=== PATIENT | female | born 1980 | race Caucasian/White ===

== ENCOUNTER 2018-09-05 05:13 | Emergency (ER) | payer SELFPAY ==
[2018-09-05] MEDS ORDERED: Lidocaine 1% w/Epinephrine 1:100K 20 ML VIAL ONE (05:44)
[2018-09-05] MEDS ORDERED: Triple Antibiotic Oint 1 GM Packet ONE (05:59)
--- NOTE | 2018-09-05 08:44 | RAD ---
THREE VIEWS OF THE RIGHT FOOT: DATE: 09/05/2018. COMPARISON: None. HISTORY: Injury, laceration, pain. FINDINGS: There is no radiopaque foreign body, subcutaneous gas, fracture, or evidence of dislocation. Skin irregularity along the plantar aspect of the foot may e associated with laceration. IMPRESSION: No acute fracture or dislocation. POS: [facility]
== END 2018-09-05 06:12 | disposition home or self-care (01) ==
LOC: ERS 05:13
DX: S91.311A Laceration without foreign body, right foot, initial encounter (principal); G43.909 Migraine, unspecified, not intractable, without status migrainosus; F31.9 Bipolar disorder, unspecified; Z79.899 Other long term (current) drug therapy; W25.XXXA Contact with sharp glass, initial encounter; Y92.009 Unspecified place in unspecified non-institutional (private) residence as the place of occurrence of the external cause
CPT/HCPCS: 12002; J2001

== ENCOUNTER 2018-11-27 20:44 | Emergency (ER) | payer SELFPAY | END 2018-11-27 21:13 | disposition left against medical advice (07) | LOC: ERS 20:44 | DX: Z53.21 Procedure and treatment not carried out due to patient leaving prior to being seen by health care provider (principal) ==

== ENCOUNTER 2019-02-21 14:32 | Inpatient (IN) | payer SELFPAY ==
[2019-02-21] MEDS ORDERED: Lidocaine 1% PF 5 ML VIAL ONE (16:29)
[2019-02-21] MEDS ORDERED: ePHEDrine 50 MG/ML VIAL ONE (16:29)
[2019-02-21] MEDS ORDERED: Ketorolac Tromethamine 30 MG/ML VIAL ONE ×2 (16:29→21:33)
[2019-02-21] MEDS ORDERED: Dexamethasone 20 MG/5 ML VIAL ONE (16:29)
[2019-02-21] MEDS ORDERED: Ondansetron PF 4 MG/2 ML Vial ONE (16:29)
[2019-02-21] MEDS ORDERED: PROPOFOL 200 MG/20 ML VIAL ONE (16:29)
[2019-02-21 16:31] LABS: #Basophils 0.2 thou/uL (0.0-0.2); #Eosinphils 0.2 thou/uL (0.0-0.7); #Lymphocytes 3.4 thou/uL (1.20-3.40); #Neutrophils 7.5 thou/uL (1.40-6.50); %Basophils 1.4 % (0.0-1.0); %Eosinophils 1.4 % (0.0-10.0); %Monocytes 8.1 % (0.0-10.0); %Neutrophils 61.1 % (42.0-75.0); Hemoglobin 8.5 g/dL (12.0-16.0); Mean Corpuscular HGB CONC 31.2 g/dL (32.0-36.0); Mean Corpuscular Hemoglobin 25.4 pg (27.0-31.0); Mean Corpuscular Volume 81.5 fL (78.0-98.0); Mean Platelet Volume 8.9 fL (7.4-10.4); Platelet Count 212 thou/uL (130-400); RBC Distribution Width 17.5 % (11.5-14.5); Red Blood Cell (RBC) Count 3.34 mill/uL (4.20-5.40); White Blood Cell (WBC) Count 12.2 thou/uL (4.8-10.8)
[2019-02-21] MEDS ORDERED: Morphine 2 MG/ML SYRINGE SLOW IVP PRN (16:39)
[2019-02-21] MEDS ORDERED: Morphine 2 MG/ML SYRINGE SLOW IVP SCH (16:45)
[2019-02-21] MEDS ORDERED: Ketorolac Tromethamine 30 MG/ML VIAL IM SCH (16:45)
[2019-02-21] MEDS ORDERED: Ketorolac Tromethamine 30 MG/ML VIAL IVP SCH (16:45)
[2019-02-21] MEDS ORDERED: Sodium Chloride 0.9% 10 ML ONE ×2 (17:06→20:11)
[2019-02-21 17:07] LABS: Bilirubin Negative (Negative); Blood, Urine Negative (Negative); Clarity CLOUDY (Clear); Glucose, Urine (Dipstick) Negative (Negative); Leukocyte Negative (Negative); Nitrite Negative (Negative); Protein, Urine (Dipstick) Trace mg/dL (Neg-Trace); Specific Gravity, Urine 1.021 (1.002-1.036); pH, Urine 7.5 (5.0-9.0)
[2019-02-21 17:09] LABS: Bacteria/HPF None Seen HPF (None Seen); Hyaline Casts/LPF 4-6 HYALINE CAST LPF (0-3 Hyaline); Pathc Cast-AUWi Flag 1.22 (0-2.49); RBC/HPF 0-3 HPF (0-3); Squamous Epithelial 0-3 HPF (0-3)
[2019-02-21 17:10] LABS: Pregnancy Test - Urine (BHCG) Negative (Negative); Pregu Control Background? CLEAR/WHITE (CLR/WHITE); Pregu Control Bar Appear? YES (CONTROL BAR); Specific Gravity 1.021 (1.002-1.036)
[2019-02-21 17:14] VITALS: BMI 41.5
[2019-02-21] MEDS ORDERED: Bupivacaine PF 0.5% 30 ML VIAL ONE (20:11)
[2019-02-21] MEDS ORDERED: Thrombin 5000 UNITS/5 ML VIAL ONE (20:11)
[2019-02-21] MEDS ORDERED: Bacitracin Zinc Ointment 30 gm TUBE ONE (20:11)
[2019-02-21] MEDS ORDERED: Sodium Chloride 0.9% 0 ML ONE (20:12)
[2019-02-21] MEDS ORDERED: Fentanyl 100 MCG/2 ML VIAL ONE ×2 (20:15→21:48)
[2019-02-21] MEDS ORDERED: Midazolam HCl 2 mg/2 ml Vial ONE (20:15)
[2019-02-21] MEDS ORDERED: Ondansetron PF 4 MG/2 ML Vial IV PRN (20:24)
[2019-02-21] MEDS ORDERED: Bisacodyl 10 MG SUPP PR PRN (20:24)
[2019-02-21] MEDS ORDERED: Milk Of Magnesia 30 ML UDCUP PO PRN (20:24)
[2019-02-21] MEDS ORDERED: Acetaminophen 325 MG TAB PO PRN (20:24)
[2019-02-21] MEDS ORDERED: Communication Order-Pharmacy FS SCH (20:30)
[2019-02-21] MEDS ORDERED: Sodium Chloride 0.9% 50 ML ONE (21:30)
[2019-02-21] MEDS ORDERED: HYDROmorphone 2 MG/ML VIAL SLOW IVP PRN (21:32)
[2019-02-21] MEDS ORDERED: Promethazine HCl 25 MG/ML VIAL IM PRN (21:32)
[2019-02-21] MEDS ORDERED: Promethazine HCl 25 MG/ML VIAL SLOW IVP PRN (21:32)
[2019-02-21] MEDS ORDERED: PACU-Morphine 4MG/ML VIAL SLOW IVP PRN (21:32)
[2019-02-21] MEDS ORDERED: Ondansetron HCl/PF 4 MG/2 ML Vial IVP PRN (21:32)
[2019-02-21] MEDS ORDERED: Metoprolol Tartrate 5 MG/5 ML VIAL ONE (22:10)
[2019-02-21] MEDS: Aspirin 81 mg Enteric Coated Tablet PO SCH (23:37)
[2019-02-22] MEDS: Sodium Chloride 0.9% 100 ML IV SCH ×2 (00:42→00:43)
[2019-02-22] MEDS: HYDROcodone/Acetaminophen 5/325 mg Tablet PO PRN ×5 (01:12→22:01)
[2019-02-22] MEDS: Ketorolac Tromethamine 30 MG/ML VIAL IVP PRN ×4 (03:17→20:48)
[2019-02-22] MEDS: Vancomycin HCl 1.5 GM in Sodium Chloride 0.9% 250 ML 300 ML IVPB SCH ×2 (03:20→14:46)
[2019-02-22] MEDS: Sodium Chloride 0.9% 1,000 ML IV SCH ×2 (03:54→14:01)
[2019-02-22] MEDS: Ketorolac Tromethamine 30 MG/ML VIAL IVP SCH ×4 (03:55→20:55)
[2019-02-22 06:09] LABS: #Lymphocytes 0.7 thou/uL (1.20-3.40); #Monocytes 0.2 thou/uL (0.11-0.59); #Neutrophils 6.8 thou/uL (1.40-6.50); %Basophils 0.4 % (0.0-1.0); %Eosinophils 0.1 % (0.0-10.0); %Lymphocytes 8.6 % (21.0-51.0); %Monocytes 2.7 % (0.0-10.0); %Neutrophils 88.2 % (42.0-75.0); Hemoglobin 8.4 g/dL (12.0-16.0); Mean Corpuscular HGB CONC 31.1 g/dL (32.0-36.0); Mean Corpuscular Hemoglobin 25.1 pg (27.0-31.0); Mean Corpuscular Volume 80.9 fL (78.0-98.0); Mean Platelet Volume 9.1 fL (7.4-10.4); Platelet Count 247 thou/uL (130-400); RBC Distribution Width 17.3 % (11.5-14.5); Red Blood Cell (RBC) Count 3.33 mill/uL (4.20-5.40); White Blood Cell (WBC) Count 7.7 thou/uL (4.8-10.8)
[2019-02-22] MEDS: Aspirin 81 mg Enteric Coated Tablet PO SCH ×2 (08:41→20:49)
[2019-02-22] MEDS: Morphine 2 MG/ML SYRINGE SLOW IVP PRN ×4 (08:43→20:49)
[2019-02-22] MEDS ORDERED: TETANUS AND DIPHTHERIA TOX/PF 0.5 ML DISP.SYRIN IM SCH (09:00)
[2019-02-22] MEDS: Meperidine HCl/PF 25 MG/ML VIAL IM PRN ×2 (09:52→17:46)
[2019-02-22] MEDS: traMADol HCl 50 MG TAB PO PRN ×2 (14:00→19:32)
[2019-02-23] MEDS: Sodium Chloride 0.9% 1,000 ML IV SCH ×2 (00:22→08:58)
[2019-02-23] MEDS: traMADol HCl 50 MG TAB PO PRN ×2 (00:44→07:57)
[2019-02-23] MEDS: Morphine 2 MG/ML SYRINGE SLOW IVP PRN (00:47)
[2019-02-23 02:43] LABS: Vancomycin, Trough 10.9 ug/mL
[2019-02-23] MEDS: Vancomycin HCl 1.5 GM in Sodium Chloride 0.9% 250 ML 300 ML IVPB SCH (02:59)
[2019-02-23] MEDS: Meperidine HCl/PF 25 MG/ML VIAL IM PRN (04:30)
[2019-02-23] MEDS: HYDROcodone/Acetaminophen 5/325 mg Tablet PO PRN ×2 (05:29→10:11)
[2019-02-23] MEDS: Ketorolac Tromethamine 30 MG/ML VIAL IVP PRN (07:57)
[2019-02-23] MEDS: Aspirin 81 mg Enteric Coated Tablet PO SCH (07:57)
[2019-02-23 08:13] VITALS: BP 149/81; TEMP 98.3
--- NOTE | 2019-02-24 12:16 | OP ---
DATE OF PROCEDURE: 02/21/2019 PREOPERATIVE DIAGNOSIS: Right thumb distal phalanx abscess with possible sheath abscess. POSTOPERATIVE DIAGNOSIS: Right thumb abscess, almost 2 mL of gross purulence emanated from the tendon sheath beginning at the insertion and going under the sheath with mucopurulent drainage between the A1 and A2 pulleys/oblique holly and proximal A1 holly. PROCEDURE PERFORMED: 1. Incision and drainage of abscess. 2. Tendon sheath irrigation with indwelling Pollack catheter. COMPLICATIONS: None. TOURNIQUET TIME: 14 minutes. SPECIMEN: Gross culture of the abscess. 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 Five days ago this happened, but over the last 2 days, she got progressive swelling, loss of motion, erythema, throbbing pain, and tightness which was intolerable. She presented with a white count of 13,000 and exam consistent with flexor sheath involvement. She had a puncture wound just over the distal phalanx, interphalangeal joint, palmar flexion crease of the thumb. DESCRIPTION OF PROCEDURE: After successful general endotracheal anesthesia by MAC anesthesia, the limb was prepped and draped. She then got a 50 mL of 0.5% Marcaine block completely around the thumb, we exsanguinated the limb, inflated tourniquet to 250 mmHg pressure. We then made an incision centered over the puncture wound, carried in a Paty fashion obliquely of 1 cm to get between the level of the A2 and oblique pulleys and then we made an incision just proximal to the A1 holly also in a Paty fashion manner. We found and protected all the neurovascular bundles, but in the distal incision, there was gross thick yellow mucopurulent abscess and in the portion of this incision as well as the most proximal incision. There was some mucopurulent escaping from the sheath, so we irrigated the abscess cavity with 500 mL of normal saline. Then, we irrigated the tendon sheath with the Pollack (indwelling catheter) to 250 mL initially exiting proximal to the infection area in the palm. There was no mucopurulence seen after this anywhere, finished irrigation for use of 1 L total and then a bulky dressing applied with the Pollack catheter indwelling for later irrigation as indicated. Job ID: [id number]
--- NOTE | 2019-02-24 12:47 | OP ---
DATE OF PROCEDURE: 02/21/2019 PREOPERATIVE DIAGNOSES: 1. Abscess, thumb, distal phalanx, palmar surface. 2. Abscess, tendon sheath, right thumb. POSTOPERATIVE DIAGNOSES: 1. Abscess, thumb, distal phalanx, palmar surface. 2. Abscess, tendon sheath, right thumb. FINDINGS: Approximately a 1 cm long by 8 mm wide fully developed and almost 8 mm thick abscess cavity right over the flexor tendon with sheath spread from the level of this A3 holly to at least chcf between the A1 and an oblique holly. COMPLICATIONS: None. PROCEDURES PERFORMED: 1. Incision and drainage of abscess, palmar thumb. 2. Via separate incisions, flexor tendon sheath irrigation using Pollack indwelling irrigation catheter. SPECIMENS REMOVED: The entire abscess cavity gross purulence. 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 Over the last two days, she had intense swelling and had Kanavel signs x3 indicative of a sheath abscess. She had elevated white count, thus urgent drainage was indicated. DESCRIPTION OF PROCEDURE: After successful general LMA technique, the limb was prepped and draped. Time-out was done. Tourniquet was inflated with for 14 minutes. We then injected her with 12 mL of 0.5% Marcaine in the metacarpophalangeal joint level and 2 mL over the incision area of the A1 holly. The patient then had the site of what appeared to be a pustule, undergo a 1 cm incision and underneath was almost a 1 cm long abscess cavity with gross, thick, well-circumscribed yellow pus. We removed this, and noticed the pus was spreading down the tendon sheath, and then extended the incision 5 mm made it into the sheath just proximal to the distal holly. We then turned our attention to the A1 holly region, made a 1 cm Paty type incision proximal to this, identified the nerve branches and protected them and then proximal to the A1 holly sheath area, placed a Pollack catheter with irrigation. We irrigated the open wound at the distal palmar thumb with 500 mL normal saline with bulb syringes and then we irrigated 250 mL into the flexor tendon sheath. We deflated the tourniquet, had excellent return of blood flow and color and left the Pollack catheter from distal to proximal for later irrigation and tested, it was intact. Now, the patient had a pink digit, the mucopurulence was gone and a bulky dressing was applied with slight normal saline packing, soaked the gauze sterilely, packed into each of the two wounds. She left the operating room without evidence of anesthetic or operative complication. Job ID: [id number]
== END 2019-02-23 10:49 | disposition home or self-care (01) | DRG 558 ==
LOC: EDSTATUS 14:32 → SDC 14:32 → EDSTATUS 15:51 → 3SE 21:18
PROVIDERS: ADMIT Orthopaedic Surgery Hand Surgery; ATTEND Orthopaedic Surgery Hand Surgery
PROC: 0J9J00Z Drainage of Right Hand Subcutaneous Tissue and Fascia with Drainage Device, Open Approach (ICD-10-PCS; principal; 2019-02-21)
PROC: 3C1ZX8Z Irrigation of Indwelling Device using Irrigating Substance, External Approach (ICD-10-PCS; 2019-02-21)
DX: M65.041 Abscess of tendon sheath, right hand (principal); L02.511 Cutaneous abscess of right hand; E03.9 Hypothyroidism, unspecified; G43.909 Migraine, unspecified, not intractable, without status migrainosus
CPT/HCPCS: 36415; 80202; 81001; 81025; 85025; 85652; 87070; 87077; 87186; 87205; C1758; J1100; J1885; J2001; J2175; J2250; J2270; J2405; J2704; J3010; J3370; J3490; J7050; S0020

== ENCOUNTER 2019-11-12 15:06 | Emergency (ER) | payer OTHER ==
[2019-11-12] MEDS ORDERED: Adacel (T-DAP) 0.5 ML SYRINGE ONE (15:20)
[2019-11-12] MEDS ORDERED: Ketorolac Tromethamine 60 MG/2 ML VIAL ONE (15:20)
== END 2019-11-12 16:00 | disposition home or self-care (01) ==
LOC: ERS 15:06
DX: S01.01XA Laceration without foreign body of scalp, initial encounter (principal); E03.9 Hypothyroidism, unspecified; F41.9 Anxiety disorder, unspecified; F32.9 Major depressive disorder, single episode, unspecified; F17.210 Nicotine dependence, cigarettes, uncomplicated; W45.8XXA Other foreign body or object entering through skin, initial encounter
CPT/HCPCS: 12001; 90471; 90715; 96372; J1885

== ENCOUNTER 2019-11-13 17:18 | Emergency (ER) | payer OTHER ==
--- NOTE | 2019-11-13 20:11 | CT ---
NONCONTRAST CT HEAD: 11/13/19 HISTORY: Patient complains of headache with nausea and vomiting. COMPARISON: 09/02/12. FINDINGS: There is no evidence of a hemorrhage, acute infarction, mass effect or midline shift. The ventricular system is normal in size, shape and position. The visualized paranasal sinuses and mastoid air cells are clear. No calvarial fracture is seen. There has been no interval change from the prior exam. Scalp soft tiss ue swelling left parietal region has resolved. IMPRESSION: No acute intracranial abnormality. POS: [facility]
[2019-11-13] MEDS ORDERED: Ondansetron ODT 4 MG TAB ONE (20:14)
--- NOTE | 2019-11-13 20:28 | CT ---
NONCONTRAST CT CERVICAL SPINE 11/13/19 HISTORY: Injury after a fall. Patient now complains of headache with nausea and vomiting. COMPARISON: 08/28/12. TECHNIQUE: Contiguous axial CT images are obtained through the cervical spine from the skull base to the T1-2 le cordelia. Sagittal and coronal reformatted images are provided. FINDINGS: There is straightening of the normal cervical lordotic curvature. The vertebral body heights and inte rvertebral disc spaces are within normal limits. No prevertebral soft tissue swelling is identified. Limited visualized lung apices are clear. IMPRESSION: There has been no interval change from the prior exam. POS: [facility]
[2019-11-13] MEDS ORDERED: diphenhydrAMINE 50 MG/ML VIAL ONE (20:35)
[2019-11-13] MEDS ORDERED: Metoclopramide HCl 10 MG/2 ML VIAL ONE (20:35)
[2019-11-13] MEDS ORDERED: Acetaminophen 500 MG TAB ONE (20:35)
== END 2019-11-13 22:09 | disposition home or self-care (01) ==
LOC: ERS 17:18
DX: G44.309 Post-traumatic headache, unspecified, not intractable (principal); F07.81 Postconcussional syndrome; E03.9 Hypothyroidism, unspecified; F41.9 Anxiety disorder, unspecified; F32.9 Major depressive disorder, single episode, unspecified; Z87.891 Personal history of nicotine dependence; W22.8XXA Striking against or struck by other objects, initial encounter; Y92.69 Other specified industrial and construction area as the place of occurrence of the external cause
CPT/HCPCS: 70450; 72125; 96365; 96375; J1200; J2765; Q0162

== ENCOUNTER 2021-04-26 14:51 | Emergency (ER) | payer SELFPAY ==
[2021-04-26 15:26] LABS: #Basophils 0.1 thou/uL (0.0-0.2); #Eosinphils 0.2 thou/uL (0.0-0.7); #Lymphocytes 2.5 thou/uL (1.20-3.40); #Monocytes 0.6 thou/uL (0.11-0.59); %Basophils 1.3 % (0.0-1.0); %Eosinophils 2.5 % (0.0-10.0); %Lymphocytes 26.2 % (21.0-51.0); %Monocytes 6.1 % (0.0-10.0); %Neutrophils 63.9 % (42.0-75.0); Hemoglobin 12.5 g/dL (12.0-16.0); Mean Corpuscular HGB CONC 33.3 g/dL (32.0-36.0); Mean Corpuscular Hemoglobin 33.2 pg (27.0-31.0); Mean Corpuscular Volume 99.8 fL (78.0-98.0); Mean Platelet Volume 8.6 fL (7.4-10.4); Platelet Count 284 thou/uL (130-400); RBC Distribution Width 11.8 % (11.5-14.5); Red Blood Cell (RBC) Count 3.76 mill/uL (4.20-5.40); White Blood Cell (WBC) Count 9.4 thou/uL (4.8-10.8)
[2021-04-26 15:45] LABS: Anion Gap 12 mmol/L (10-20); BUN (Urea Nitrogen) 23 mg/dL (7.0-18.7); Calc. Creatinine Clearance 0 mL/min (70-130); Calcium 10.9 mg/dL (7.8-10.44); Carbon Dioxide 33 mmol/L (22-29); Chloride 99 mmol/L (98-107); Glucose 120 mg/dL (70-105); Potassium 3.9 mmol/L (3.5-5.1); Sodium 140 mmol/L (136-145)
== END 2021-04-26 17:48 | disposition home or self-care (01) ==
LOC: ERS 14:51
DX: N93.8 Other specified abnormal uterine and vaginal bleeding (principal); Z79.899 Other long term (current) drug therapy; I10 Essential (primary) hypertension; E03.9 Hypothyroidism, unspecified; Z87.891 Personal history of nicotine dependence
CPT/HCPCS: 36415; 80048; 85025; 99284